=== PATIENT | male | born 1970 | race Caucasian/White ===

== ENCOUNTER 2020-07-24 05:04 | Observation (INO) ==
[2020-07-24] MEDS ORDERED: Acetaminophen 325 MG TABLET PO PRN (07:08)
[2020-07-24] MEDS ORDERED: Ondansetron 4 MG/2 ML VIAL IVP PRN (07:08)
[2020-07-24] MEDS ORDERED: D5% in Water 1,000 ML IVC PRN (07:12)
[2020-07-24] MEDS ORDERED: *HR* Dextrose 50 % in Water (Vial) 50 ML VIAL IVP PRN (07:12)
[2020-07-24] MEDS ORDERED: Dextrose Gel 15 GM/37.5 ML TUBE PO PRN ×2 (07:12)
[2020-07-24] MEDS ORDERED: 0.9 % Sodium Chloride 1,000 ML IVC SCH (07:15)
[2020-07-24] MEDS ORDERED: Insulin LISPRO 300 UNITS/3 ML VIAL SQ SCH ×2 (07:30→21:00)
[2020-07-24] MEDS ORDERED: *HR* Metformin 500 MG TABLET PO SCH (08:00)
[2020-07-24 08:46] VITALS: BP 134/84
[2020-07-24] MEDS: *HR* Enoxaparin 40 MG/0.4 ML SYRINGE SQ SCH ×2 (08:47→10:36)
[2020-07-24] MEDS ORDERED: lisinopriL 10 MG TABLET PO SCH (09:00)
[2020-07-24 10:30] LABS: BUN/Creatinine Ratio 20 (6-26); Blood Urea Nitrogen 23 mg/dL (6-20); Calcium 9.1 mg/dL (8.6-10.3); Carbon Dioxide 28 mEq/L (23-29); Chloride 92 mEq/L (98-107); Glucose 405 mg/dL (70-105); Magnesium 1.6 mg/dL (1.6-2.6); Osmolality,Calculated 289 (280-300); Potassium 4.6 mEq/L (3.5-5.1); Sodium 129 mEq/L (136-145); eGFR For African Americans > 60 (> 60); eGFR For Non-African Americans > 60 (> 60)
[2020-07-24] MEDS ORDERED: Insulin DETEMIR 100 UNIT/ML X5UNITS SQ SCH (21:00)
== END 2020-07-24 12:22 | disposition home or self-care (01) ==
LOC: 2NENU → SUATTDRO 06:38
PROVIDERS: ADMIT Internal Medicine; ATTEND Internal Medicine